=== PATIENT | male | born 1950 | race Caucasian/White ===

== ENCOUNTER 2016-07-30 20:55 | Emergency (ER) | payer MEDICARE, OTHER ==
[2016-07-30 21:54] VITALS: BP 155/74
[2016-07-30] MEDS ORDERED: LORazepam 2 MG/ML MDV IVPUSH ONE (22:02)
[2016-07-30] MEDS ORDERED: Sodium Chloride 0.9% 10 ML Syringe FLUSH PRN (22:02)
--- NOTE | 2016-07-30 23:20 | EDM.PDOC ---
ED HPI GENERAL MEDICAL PROBLEM - General Chief Complaint: General Stated Complaint: VERTIGO/NAUSEA Time Seen by Provider: 07/30/16 22:00 Source of Information: Reports: Patient History Limitations: Reports: No limitations - History of Present Illness INITIAL COMMENTS - FREE TEXT/NARRATIVE: This patient complains of vertigo, spinning sensation. It started this morning when he was lying in bed. He woke up everything was just fine and when he turned his head suddenly he began feeling like he was spinning. This has happened on and off throughout the day and appears to be closely associated with turning his head. Tonight it seems to be worse and it has caused him nausea and some vomiting. He denies any ear pain there's no history of this previously he has not noticed any kind of ataxia. Treatments WATCH TECHNICIAN: Reports: Other (see below) Other Treatments WATCH TECHNICIAN: 's meclizine - vomited up - Related Data Allergies Allergy/AdvReac Type Severity Reaction Status Date / Time Sulfa (Sulfonamide Allergy Rash Verified 07/30/16 21:56 Antibiotics) codeine AdvReac Nausea Verified 07/30/16 21:56 Home Meds: Home Meds Pseudoephedrine HCl [Sudafed 12 Hour] 120 mg PO BID 07/30/16 [History] Rivaroxaban [Xarelto] 20 mg PO DAILY 07/30/16 [History] Past Medical History Respiratory History: Reports: PE, Other (see below) Other Respiratory History: On Xareratol Genitourinary History: Reports: Prostate disorder, Renal calculus Oncologic (Cancer) History: Reports: Prostate, Other (see below) Other Oncologic History: skin - Past Surgical History Cardiovascular Surgical History: Reports: Other (see below) Other Cardiovascular Surgeries/Procedures: Vein stripping of both legs. GI Surgical History: Reports: Hernia repair/other Dermatological Surgical History: Reports: Skin biopsy Social & Family History - Tobacco Use Smoking Status *Q: Never Smoker Second Hand Smoke Exposure: No - Caffeine Use Caffeine Use: Reports: None - Recreational Drug Use Recreational Drug Use: No ED ROS GENERAL - Review of Systems Review Of Systems: See Below Constitutional: Reports: no symptoms HEENT: Reports: No symptoms Respiratory: Reports: no symptoms Cardiovascular: Reports: No symptoms Endocrine: Reports: no symptoms GI/Abdominal: Reports: No symptoms : Reports: no symptoms Musculoskeletal: Reports: no symptoms Neurological: Reports: dizziness Psychiatric: Reports: No symptoms ED EXAM, GENERAL - Physical Exam Exam: See Below Exam Limited By: No limitations General Appearance: alert, WD/WN, no apparent distress (He said as long as he keeps his head still he doesn't have any vertigo. His nausea presently is gone) Eye Exam: bilateral eye: EOMI (There is no nystagmus seen), normal inspection, PERRL Ears: normal external exam, normal TMs Nose: normal inspection Throat/Mouth: Normal inspection Neck: normal inspection Respiratory/Chest: lungs clear Cardiovascular: regular rate, rhythm Peripheral Pulses: 2+: radial (L), radial (R), posterior tibial (L), posterior tibial (R) GI/Abdominal: non tender Extremities: normal inspection Neurological: alert, oriented, CN II-XII intact, normal cognition, no motor/ sensory deficits Psychiatric: normal affect Skin Exam: Warm, Dry Course - Vital Signs Last Recorded V/S: Last Vital Signs Temp 36.5 C 07/30/16 21:54 Pulse 64 07/30/16 21:54 Resp 19 07/30/16 21:54 BP 155/74 H 07/30/16 21:54 Pulse Ox 95 07/30/16 21:54 - Orders/Labs/Meds Orders: Active Orders 24 hr Category Date Time Status Sodium Chloride 0.9% [Saline Flush] Med 07/30/16 22:02 Active 10 ml FLUSH ASDIRECTED PRN Saline Lock Insert [OM.PC] Urgent Oth 07/30/16 22:01 Ordered Medication Orders Sodium Chloride (Saline Flush) 10 ml FLUSH ASDIRECTED PRN PRN Reason: Keep Vein Open Last Admin: 07/30/16 22:10 Dose: 10 ml Meds: Medications Generic Name Dose Route Start Last Admin Trade Name Freq PRN Reason Stop Dose Admin Sodium Chloride 10 ml 07/30/16 22:02 07/30/16 22:10 Saline Flush FLUSH 10 ml ASDIRECTED PRN Administration Keep Vein Open Discontinued Medications Generic Name Dose Route Start Last Admin Trade Name Freq PRN Reason Stop Dose Admin Lorazepam 2 mg 07/30/16 22:02 07/30/16 22:10 Ativan IVPUSH 07/30/16 22:03 2 mg ONETIME ONE Administration - Re-Assessments/Exams Free Text/Narrative Re-Assessment/Exam: 07/30/16 23:42 An IV was established and he was given 2 mg of lorazepam. He was rechecked about an hour later and said he felt better although sleepy. He hasn't tried moving his head lately however. 07/30/16 23:43 07/30/16 23:43 a Perla Hallpike maneuver was not done since his symptoms are so closely associated with head movement Departure - Departure Time of Disposition: 23:18 Disposition: Home, Self-Care 01 Condition: fair Clinical Impression: Benign paroxysmal positional vertigo Instructions: Vertigo, [id number] Referrals: PCP,None [Primary Care Provider] - Forms: ED Department Discharge Additional Instructions: Prescription: Lorazepam 1 mg #10 tablets, take one half or one tablet every 4-6 hours as needed for vertigo. This medication can cause sedation and impair driving or operating machinery. Don't drink any alcohol while taking this medicine. Followup tomorrow with physical therapy. There are certain maneuvers that can be done that will relieve the vertigo. - My Orders Last 24 Hours: My Active Orders 07/30/16 22:01 Saline Lock Insert [OM.PC] Urgent 07/30/16 22:02 Sodium Chloride 0.9% [Saline Flush] 10 ml FLUSH ASDIRECTED PRN - Assessment/Plan Last 24 Hours: My Active Orders 07/30/16 22:01 Saline Lock Insert [OM.PC] Urgent 07/30/16 22:02 Sodium Chloride 0.9% [Saline Flush] 10 ml FLUSH ASDIRECTED PRN
== END 2016-07-30 23:50 | disposition home or self-care (01) ==
LOC: JP.ED 20:55
DX: H81.10 Benign paroxysmal vertigo, unspecified ear (principal); Z88.2 Allergy status to sulfonamides; Z88.5 Allergy status to narcotic agent; Z79.899 Other long term (current) drug therapy
CPT/HCPCS: 96374; 99283; J2060; J7050; 99284

== ENCOUNTER 2016-10-05 23:21 | Emergency (ER) | payer MEDICARE, OTHER ==
[2016-10-06 00:35] VITALS: BP 126/81
[2016-10-06] MEDS ORDERED: HYDROmorphone 1 MG/ML Syringe IVPUSH ONE ×2 (00:50→01:52)
[2016-10-06] MEDS: Sodium Chloride 0.9% 10 ML Syringe FLUSH PRN ×2 (01:07→01:29)
[2016-10-06] MEDS ORDERED: Ondansetron 4 MG/2 ML SDV IVPUSH ONE (01:16)
--- NOTE | 2016-10-06 03:04 | EDM.PDOC ---
ED HPI GENERAL MEDICAL PROBLEM - General Chief Complaint: General Stated Complaint: LT ARM PAIN Time Seen by Provider: 10/06/16 00:38 Source of Information: Reports: Patient History Limitations: Reports: No Limitations - History of Present Illness INITIAL COMMENTS - FREE TEXT/NARRATIVE: History of present illness: [This 66-year-old man comes in the morning of severe 10 out of 10 pain of his left shoulder. This came on after having a pneumonia shot today in the clinic. He also complains of some numbness and tingling of the forearm and hand. He has no fevers or chills with this. He's never reacted to any immunizations in the past like this. Patient is on Xeralto as he's had pulmonary embolus in the past.] Review of systems: As per history of present illness and below otherwise all systems reviewed and negative. Past medical history: As per history of present illness and as reviewed below otherwise noncontributory. Surgical history: As per history of present illness and as reviewed below otherwise noncontributory. Social history: No reported history of drug or alcohol abuse. Family history: As per history of present illness and as reviewed below otherwise noncontributory. Physical exam: HEENT: Atraumatic, normocephalic, pupils reactive, negative for conjunctival pallor or scleral icterus, mucous membranes moist, throat clear, neck supple, nontender, trachea midline. Lungs: Clear to auscultation, breath sounds equal bilaterally Heart: S1S2, regular Abdomen: Soft, nondistended, nontender. Pelvis: Stable nontender. Genitourinary: Deferred. Rectal: Deferred. Extremities: Examination of the left shoulder reveals no erythema or swelling present. But palpation of this area elicits extreme pain. The Band-Aid was present and was high on his shoulder suggesting that the injection site may have been placed a little too high. Neuro: Awake, alert, oriented. Cranial nerves II through XII unremarkable. Cerebellum unremarkable. Motor and sensory unremarkable throughout. Exam nonfocal. Diagnostics: [Given the patient was on xeralto one possibility was that the patient somehow has or had a hematoma form as a result of this injection causing this pain. Hence we did a CT of the left shoulder but no hematoma was identified. He does have some degenerative joint disease present.] Therapeutics: [Patient was given Dilaudid for pain control through a saline lock.] Impression: [Post vaccination left shoulder pain] Plan: [He's provided with Percocet for pain control. I have reassured him that I think that this problem should shahzad with time and he should recover and have normal function of his arm is what I would expect. If he doesn't improve or continues to have problems he will followup with his primary care doctor.] Definitive disposition and diagnosis as appropriate pending reevaluation and review of above. left arm pain Pain Score (Numeric/FACES): 10 - Related Data Allergies Allergy/AdvReac Type Severity Reaction Status Date / Time clindamycin Allergy Cannot Verified 10/06/16 01:09 Remember Sulfa (Sulfonamide Allergy Rash Verified 10/06/16 01:09 Antibiotics) codeine AdvReac Nausea Verified 10/06/16 01:09 Home Meds: Home Meds Pseudoephedrine HCl [Sudafed 12 Hour] 60 mg PO BID PRN 07/30/16 [History] Rivaroxaban [Xarelto] 20 mg PO DAILY 07/30/16 [History] Calcium Carbonate [Tums] 2 tab PO BID 09/15/16 [History] Desoximetasone [Topicort 0.25% Crm] 1 appful TOP BID PRN 09/15/16 [History] Multivitamin with Minerals [Multiple Vitamin] 1 tab PO DAILY 09/15/16 [History] diphenhydrAMINE [Benadryl] 25 - 50 mg PO QID PRN 09/15/16 [History] Acetaminophen [Tylenol] 650 mg PO ASDIRECTED 09/21/16 [History] Albuterol Sulfate [Proair Hfa] 2 puff IH ASDIRECTED 09/21/16 [History] LORazepam 1 mg PO ASDIRECTED PRN 09/21/16 [History] Past Medical History HEENT History: Reports: Impaired Vision Respiratory History: Reports: PE Other Respiratory History: On Xareratol Genitourinary History: Reports: Prostate Disorder, Renal Calculus Oncologic (Cancer) History: Reports: Prostate Other Oncologic History: skin Dermatologic History: Reports: Melanoma - Infectious Disease History Infectious Disease History: Reports: Chicken Pox, Measles - Past Surgical History GI Surgical History: Reports: Hernia Repair/Other Male Surgical History: Reports: Lithotripsy (ESWL) Dermatological Surgical History: Reports: Skin Biopsy Social & Family History - Tobacco Use Smoking Status *Q: Never Smoker Second Hand Smoke Exposure: No - Caffeine Use Caffeine Use: Reports: Tea - Recreational Drug Use Recreational Drug Use: No ED ROS GENERAL - Review of Systems Review Of Systems: ROS reveals no pertinent complaints other than HPI. ED EXAM, GENERAL - Physical Exam Exam: See Below Course - Vital Signs Last Recorded V/S: Last Vital Signs Temp 37.9 C 10/06/16 00:34 Pulse 73 10/06/16 00:34 Resp 26 H 10/06/16 00:34 BP 126/81 10/06/16 00:34 Pulse Ox 98 10/06/16 00:34 - Orders/Labs/Meds Orders: Active Orders 24 hr Category Date Time Status Shoulder wo Cont Lt [CT] Stat Exams 10/06/16 00:50 Taken Sodium Chloride 0.9% [Saline Flush] Med 10/06/16 00:49 Active 10 ml FLUSH ASDIRECTED PRN Saline Lock Insert [OM.PC] Stat Oth 10/06/16 00:49 Ordered Medication Orders Sodium Chloride (Saline Flush) 10 ml FLUSH ASDIRECTED PRN PRN Reason: Keep Vein Open Last Admin: 10/06/16 01:29 Dose: 10 ml Admin: 10/06/16 01:07 Dose: 10 ml Meds: Medications Generic Name Dose Route Start Last Admin Trade Name Freq PRN Reason Stop Dose Admin Sodium Chloride 10 ml 10/06/16 00:49 10/06/16 01:29 Saline Flush FLUSH 10 ml ASDIRECTED PRN Administration Keep Vein Open Discontinued Medications Generic Name Dose Route Start Last Admin Trade Name Freq PRN Reason Stop Dose Admin Hydromorphone HCl 1 mg 10/06/16 00:50 10/06/16 01:03 Dilaudid IVPUSH 10/06/16 00:51 1 mg ONETIME ONE Administration Hydromorphone HCl 1 mg 10/06/16 01:52 10/06/16 02:18 Dilaudid IVPUSH 10/06/16 01:53 1 mg ONETIME ONE Administration Ondansetron HCl 4 mg 10/06/16 01:16 10/06/16 01:26 Zofran IVPUSH 10/06/16 01:17 4 mg ONETIME ONE Administration Departure - Departure Time of Disposition: 03:04 Disposition: Home, Self-Care 01 Condition: good Clinical Impression: Post-vaccination reaction Qualifiers: Encounter type: initial encounter Qualified Code(s): T88.1XXA - Other complications following immunization, not elsewhere classified, initial encounter - Discharge Information Forms: ED Department Discharge Additional Instructions: He if your pain does not shahzad over the weekend I would recommend that you followup in the clinic and see your primary care doctor for further evaluation and treatment. - My Orders Last 24 Hours: My Active Orders 10/06/16 00:49 Sodium Chloride 0.9% [Saline Flush] 10 ml FLUSH ASDIRECTED PRN Saline Lock Insert [OM.PC] Stat 10/06/16 00:50 Shoulder wo Cont Lt [CT] Stat - Assessment/Plan Last 24 Hours: My Active Orders 10/06/16 00:49 Sodium Chloride 0.9% [Saline Flush] 10 ml FLUSH ASDIRECTED PRN Saline Lock Insert [OM.PC] Stat 10/06/16 00:50 Shoulder wo Cont Lt [CT] Stat
== END 2016-10-06 03:35 | disposition home or self-care (01) ==
LOC: JP.ED 23:21
DX: T88.1XXA Other complications following immunization, not elsewhere classified, initial encounter (principal); Z88.1 Allergy status to other antibiotic agents; Z88.2 Allergy status to sulfonamides; Z88.5 Allergy status to narcotic agent; Z79.899 Other long term (current) drug therapy
CPT/HCPCS: 73200; 96374; 96375; 96376; 99283; J1170; J2405; J7050; 99284

== ENCOUNTER 2016-12-14 00:44 | Emergency (ER) | payer MEDICARE, OTHER ==
[2016-12-14] MEDS ORDERED: Sodium Chloride 0.9% 10 ML Syringe FLUSH PRN (01:19)
[2016-12-14] MEDS ORDERED: Ondansetron 4 MG/2 ML SDV IVPUSH ONE (01:29)
[2016-12-14] MEDS ORDERED: HYDROmorphone 1 MG/ML Syringe IVPUSH ONE ×2 (01:29→02:05)
[2016-12-14] MEDS ORDERED: Sodium Chloride 0.9% 1,000 ML IV SCH (02:00)
[2016-12-14] MEDS ORDERED: Lactated Ringers 1,000 ML IV SCH ×2 (03:15→04:30)
[2016-12-14] MEDS ORDERED: Acetaminophen/oxyCODONE 325-10 MG Tab PO PRN ×2 (03:53→04:22)
[2016-12-14 05:13] VITALS: BP 119/73
--- NOTE | 2016-12-14 05:29 | EDM.PDOC ---
ED HPI GENERAL MEDICAL PROBLEM - General Chief Complaint: Abdominal Pain Stated Complaint: ABD PAIN Time Seen by Provider: 12/14/16 01:18 Source of Information: Reports: Patient History Limitations: Reports: No Limitations - History of Present Illness INITIAL COMMENTS - FREE TEXT/NARRATIVE: History of present illness: [66-year-old male presenting with acute onset of left flank pain and suprapubic pain. He does have a history of kidney stones in the past and he feels like he is having another one. It just started an hour to prior to presentation. Prior to that he was feeling fine with no fevers chills abdominal pain dysuria.] Review of systems: As per history of present illness and below otherwise all systems reviewed and negative. Past medical history: As per history of present illness and as reviewed below otherwise noncontributory. Surgical history: As per history of present illness and as reviewed below otherwise noncontributory. Social history: No reported history of drug or alcohol abuse. Family history: As per history of present illness and as reviewed below otherwise noncontributory. Physical exam: HEENT: Atraumatic, normocephalic, pupils reactive, negative for conjunctival pallor or scleral icterus, mucous membranes moist, throat clear, neck supple, nontender, trachea midline. Lungs: Clear to auscultation, breath sounds equal bilaterally, chest nontender. Heart: S1S2, regular, negative for clicks, rubs, or JVD. Abdomen: His abdomen is soft but he does have some tenderness to palpation in the left suprapubic back area and left gutter as well as some mild left-sided CVA tenderness Extremities: Atraumatic, negative for cords or calf pain. Neurovascular unremarkable. Neuro: Awake, alert, oriented. Exam nonfocal. Diagnostics: [UA is positive for hematuria CBC and complete metabolic panel were also done. See T demonstrated a 3 mm stone in the left proximal ureter] Therapeutics: [Patient received IV fluids and IV Dilaudid while here] Impression: [Kidney stone] Plan: [He's provided with Percocet for pain control and if he doesn't pass the stone in the next 2-3 weeks he will follow-up with his primary care provider given the size of the stone it's likely that it will pass] Definitive disposition and diagnosis as appropriate pending reevaluation and review of above. Lower Pelvic Pain Score (Numeric/FACES): 7 - Related Data Allergies Allergy/AdvReac Type Severity Reaction Status Date / Time clindamycin Allergy Cannot Verified 12/14/16 00:56 Remember Sulfa (Sulfonamide Allergy Rash Verified 12/14/16 00:56 Antibiotics) codeine AdvReac Nausea Verified 12/14/16 00:56 Home Meds: Home Meds Pseudoephedrine HCl [Sudafed 12 Hour] 60 mg PO BID PRN 07/30/16 [History] Rivaroxaban [Xarelto] 20 mg PO DAILY 07/30/16 [History] Calcium Carbonate [Tums] 2 tab PO BID 09/15/16 [History] Desoximetasone [Topicort 0.25% Crm] 1 appful TOP BID PRN 09/15/16 [History] Multivitamin with Minerals [Multiple Vitamin] 1 tab PO DAILY 09/15/16 [History] diphenhydrAMINE [Benadryl] 25 - 50 mg PO QID PRN 09/15/16 [History] Acetaminophen [Tylenol] 650 mg PO ASDIRECTED 09/21/16 [History] Albuterol Sulfate [Proair Hfa] 2 puff IH ASDIRECTED 09/21/16 [History] Cyanocobalamin (Vitamin B-12) [Vitamin B-12] 1 tab PO DAILY 12/14/16 [History] Fluticasone Propionate [Flonase] 1 spray BRAD DAILY 12/14/16 [History] Folic Acid 1 tab PO DAILY 12/14/16 [History] Metoprolol Succinate [Toprol XL] 1 tab PO DAILY 12/14/16 [History] Past Medical History HEENT History: Reports: Impaired Vision Cardiovascular History: Reports: Other (See Below) Other Cardiovascular History: tachycardia Respiratory History: Reports: PE Other Respiratory History: On Xareratol Genitourinary History: Reports: Prostate Disorder, Renal Calculus Hematologic History: Reports: Anticoagulation Therapy Oncologic (Cancer) History: Reports: Prostate Other Oncologic History: skin Dermatologic History: Reports: Melanoma - Infectious Disease History Infectious Disease History: Reports: Chicken Pox, Measles - Past Surgical History GI Surgical History: Reports: Hernia Repair/Other Male Surgical History: Reports: Lithotripsy (ESWL) Dermatological Surgical History: Reports: Skin Biopsy Social & Family History - Tobacco Use Smoking Status *Q: Never Smoker Second Hand Smoke Exposure: No - Caffeine Use Caffeine Use: Reports: Tea - Recreational Drug Use Recreational Drug Use: No ED ROS GENERAL - Review of Systems Review Of Systems: ROS reveals no pertinent complaints other than HPI. ED EXAM, RENAL/ - Physical Exam Exam: See Below Course - Vital Signs Last Recorded V/S: Last Vital Signs Temp 36.3 C 12/14/16 00:54 Pulse 59 L 12/14/16 03:40 Resp 16 12/14/16 03:40 BP 119/73 12/14/16 03:40 Pulse Ox 99 12/14/16 03:40 - Orders/Labs/Meds Orders: Active Orders 24 hr Category Date Time Status Abdomen Pelvis wo Cont [CT] Stat Exams 12/14/16 01:20 Taken Acetaminophen/oxyCODONE [Percocet 325-10 MG] Med 12/14/16 03:53 Active 1 tab PO ONETIME PRN Acetaminophen/oxyCODONE [Percocet 325-10 MG] Med 12/14/16 04:22 Ordered 1 tab PO ONETIME PRN Lactated Ringers [Ringers, Lactated] 1,000 ml Med 12/14/16 03:15 Active IV ASDIRECTED Lactated Ringers [Ringers, Lactated] 1,000 ml Med 12/14/16 04:30 Ordered IV ASDIRECTED Sodium Chloride 0.9% [Normal Saline] 1,000 ml Med 12/14/16 02:00 Active IV ASDIRECTED Sodium Chloride 0.9% [Saline Flush] Med 12/14/16 01:19 Active 10 ml FLUSH ASDIRECTED PRN Saline Lock Insert [OM.PC] Stat Oth 12/14/16 01:19 Ordered Medication Orders Sodium Chloride (Normal Saline) 1,000 mls @ 999 mls/hr IV ASDIRECTED ANN Last Admin: 12/14/16 02:03 Dose: 999 mls/hr Lactated Ringer's (Ringers, Lactated) 1,000 mls @ 999 mls/hr IV ASDIRECTED ANN Last Admin: 12/14/16 03:04 Dose: 999 mls/hr Lactated Ringer's (Ringers, Lactated) 1,000 mls @ 999 mls/hr IV ASDIRECTED ANN Last Admin: 12/14/16 04:24 Dose: 999 mls/hr Oxycodone/Acetaminophen (Percocet 325-10 Mg) 1 tab PO ONETIME PRN PRN Reason: Abdominal Pain Last Admin: 12/14/16 04:02 Dose: 1 tab Oxycodone/Acetaminophen (Percocet 325-10 Mg) 1 tab PO ONETIME PRN PRN Reason: Abdominal Pain Sodium Chloride (Saline Flush) 10 ml FLUSH ASDIRECTED PRN PRN Reason: Keep Vein Open Last Admin: 12/14/16 01:26 Dose: 10 ml Labs: Laboratory Tests 12/14/16 12/14/16 12/14/16 Range/Units 01:30 01:30 03:50 WBC 11.6 H (4.5-11.0) K/uL RBC 4.56 (4.30-5.90) M/uL Hgb 15.1 H (12.0-15.0) g/dL Hct 44.7 (40.0-54.0) % MCV 98 (80-98) fL MCH 33 H (27-31) pg MCHC 34 (32-36) % Plt Count 256 (150-400) K/uL Neut % (Auto) 63 (36-66) % Lymph % (Auto) 20 L (24-44) % [place] % (Auto) 13 H (2-6) % Eos % (Auto) 2 (2-4) % Baso % (Auto) 1 (0-1) % Sodium 142 (140-148) mmol/L Potassium 3.7 (3.6-5.2) mmol/L Chloride 106 (100-108) mmol/L Carbon Dioxide 29 (21-32) mmol/L Anion Gap 7.2 (5.0-14.0) mmol/L BUN 21 H (7-18) mg/dL Creatinine 1.4 H (0.8-1.3) mg/dL Est Cr Clr Drug Dosing 69.52 mL/min Estimated GFR (MDRD) 51 L (>60) Glucose 116 H (74-106) mg/dL Calcium 8.9 (8.5-10.1) mg/dL Total Bilirubin 0.5 (0.2-1.0) mg/dL AST 24 (15-37) U/L ALT 34 (12-78) U/L Alkaline Phosphatase 73 (46-116) U/L Total Protein 7.2 (6.4-8.2) g/dL Albumin 3.6 (3.4-5.0) g/dL Globulin 3.6 H (2.3-3.5) g/dL Albumin/Globulin Ratio 1.0 L (1.2-2.2) Urine Color Yellow Urine Appearance Slightly cloudy Urine pH 6.0 (4.5-8.0) Ur Specific [place] 1.015 (1.008-1.030) Urine Protein Negative (NEGATIVE) mg/dL Urine Glucose (UA) Normal (NEGATIVE) mg/dL Urine Ketones Negative (NEGATIVE) mg/dL Urine Occult Blood Large (NEGATIVE) Urine Nitrite Negative (NEGAITVE) Urine Bilirubin Negative (NEGATIVE) Urine Urobilinogen Normal (NORMAL) mg/dL Ur Leukocyte Esterase Negative (NEGATIVE) Urine RBC 20-30 H (0-5) Urine WBC 0-5 (0-5) Ur Epithelial Cells Not seen Amorphous Sediment Not seen Urine Bacteria Not seen Urine Mucus Not seen Meds: Medications Generic Name Dose Route Start Last Admin Trade Name Freq PRN Reason Stop Dose Admin Sodium Chloride 1,000 mls @ 999 mls/hr 12/14/16 02:00 12/14/16 02:03 Normal Saline IV 999 mls/hr ASDIRECTED ANN Administration Lactated Ringer's 1,000 mls @ 999 mls/hr 12/14/16 03:15 12/14/16 03:04 Ringers, Lactated IV 999 mls/hr ASDIRECTED ANN Administration Lactated Ringer's 1,000 mls @ 999 mls/hr 12/14/16 04:30 12/14/16 04:24 Ringers, Lactated IV 999 mls/hr ASDIRECTED ANN Administration Oxycodone/Acetaminophen 1 tab 12/14/16 03:53 12/14/16 04:02 Percocet 325-10 Mg PO 1 tab ONETIME PRN Administration Abdominal Pain Oxycodone/Acetaminophen 1 tab 12/14/16 04:22 Percocet 325-10 Mg PO ONETIME PRN Abdominal Pain Sodium Chloride 10 ml 12/14/16 01:19 12/14/16 01:26 Saline Flush FLUSH 10 ml ASDIRECTED PRN Administration Keep Vein Open Discontinued Medications Generic Name Dose Route Start Last Admin Trade Name Freq PRN Reason Stop Dose Admin Hydromorphone HCl 1 mg 12/14/16 01:29 12/14/16 01:40 Dilaudid IVPUSH 12/14/16 01:30 1 mg ONETIME ONE Administration Hydromorphone HCl 1 mg 12/14/16 02:05 12/14/16 02:10 Dilaudid IVPUSH 12/14/16 02:06 1 mg ONETIME ONE Administration Ondansetron HCl 4 mg 12/14/16 01:29 12/14/16 01:39 Zofran IVPUSH 12/14/16 01:30 4 mg ONETIME ONE Administration Departure - Departure Time of Disposition: Disposition: Home, Self-Care 01 Condition: Good Clinical Impression: Left nephrolithiasis - Discharge Information Forms: ED Department Discharge Additional Instructions: Continue to push fluids. It is likely that he will pass the stone as it is only 3 mm. If her pain becomes intractable you have to repeat present to the emergency room and if it doesn't clear up in a reasonable amount of time he will need to follow-up with your doctor or a urologist - My Orders Last 24 Hours: My Active Orders 12/14/16 01:19 Sodium Chloride 0.9% [Saline Flush] 10 ml FLUSH ASDIRECTED PRN Saline Lock Insert [OM.PC] Stat 12/14/16 01:20 Abdomen Pelvis wo Cont [CT] Stat 12/14/16 02:00 Sodium Chloride 0.9% [Normal Saline] 1,000 ml IV ASDIRECTED 12/14/16 03:15 Lactated Ringers [Ringers, Lactated] 1,000 ml IV ASDIRECTED 12/14/16 03:53 Acetaminophen/oxyCODONE [Percocet 325-10 MG] 1 tab PO ONETIME PRN 12/14/16 04:22 Acetaminophen/oxyCODONE [Percocet 325-10 MG] 1 tab PO ONETIME PRN 12/14/16 04:30 Lactated Ringers [Ringers, Lactated] 1,000 ml IV ASDIRECTED - Assessment/Plan Last 24 Hours: My Active Orders 12/14/16 01:19 Sodium Chloride 0.9% [Saline Flush] 10 ml FLUSH ASDIRECTED PRN Saline Lock Insert [OM.PC] Stat 12/14/16 01:20 Abdomen Pelvis wo Cont [CT] Stat 12/14/16 02:00 Sodium Chloride 0.9% [Normal Saline] 1,000 ml IV ASDIRECTED 12/14/16 03:15 Lactated Ringers [Ringers, Lactated] 1,000 ml IV ASDIRECTED 12/14/16 03:53 Acetaminophen/oxyCODONE [Percocet 325-10 MG] 1 tab PO ONETIME PRN 12/14/16 04:22 Acetaminophen/oxyCODONE [Percocet 325-10 MG] 1 tab PO ONETIME PRN 12/14/16 04:30 Lactated Ringers [Ringers, Lactated] 1,000 ml IV ASDIRECTED
== END 2016-12-14 05:30 | disposition home or self-care (01) ==
LOC: JP.ED 00:44
DX: N13.2 Hydronephrosis with renal and ureteral calculous obstruction (principal); Z85.828 Personal history of other malignant neoplasm of skin; Z98.890 Other specified postprocedural states; Z79.01 Long term (current) use of anticoagulants; Z86.711 Personal history of pulmonary embolism; Z79.899 Other long term (current) drug therapy; Z88.1 Allergy status to other antibiotic agents; Z88.2 Allergy status to sulfonamides; Z88.5 Allergy status to narcotic agent
CPT/HCPCS: 36415; 74176; 80053; 81001; 85025; 96361; 96374; 96375; 96376; 99284; A9270; J1170; J2405; J7040; J7050; J7120

== ENCOUNTER 2017-09-24 17:31 | Emergency (ER) | payer MEDICARE, OTHER ==
[2017-09-24] MEDS ORDERED: Aspirin 81 MG Tab.Chew ONE (18:24)
[2017-09-24] MEDS ORDERED: Aspirin 81 MG Tab.Chew PO ONE (18:30)
[2017-09-24] MEDS ORDERED: Sodium Chloride 0.9% 1,000 ML IV SCH (18:32)
[2017-09-24] MEDS ORDERED: Metoprolol Tartrate 25 MG Tab PO ONE (19:40)
--- NOTE | 2017-09-25 09:56 | CR ---
Chest 2V INDICATION: CHEST PAIN COMPARISON: 10/25/2016 FINDINGS: Two views. Heart size normal. Lungs are clear. No infiltrate or pleural effusion. No sig ns of pulmonary edema.
[2017-09-25 10:48] VITALS: BP 94/64
== END 2017-09-24 22:00 | disposition home or self-care (01) ==
LOC: JP.ED 17:31
DX: R00.0 Tachycardia, unspecified (principal)
CPT/HCPCS: 36415; 71046; 80053; 82553; 83735; 84484; 85025; 96360; 99284; 99285; A9270; J7040; 93010

== ENCOUNTER 2018-01-12 17:15 | Emergency (ER) | payer MEDICARE, OTHER ==
[2018-01-12 18:09] VITALS: BP 118/79
[2018-01-12] MEDS: HYDROmorphone 1 MG/ML Syringe IVPUSH ONE (18:51)
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
[2018-01-12] MEDS: Lidocaine 1% 20 ML MDV INJECT ONE (20:44)
--- NOTE | 2018-01-14 09:02 | CR ---
Femur Min 2V Rt CLINICAL HISTORY: Fall, thigh pain FINDINGS: There is no acute fracture within the femur. No destructive changes are seen. There is macario e mild joint space narrowing in the hip. There is some knee joint space narrowing and patellar spurri ng. No fracture Osteoarthritic changes in the hip and knee
== END 2018-01-12 22:00 | disposition home or self-care (01) ==
LOC: JP.ED 17:15
DX: S01.511A Laceration without foreign body of lip, initial encounter (principal); S70.11XA Contusion of right thigh, initial encounter; Z88.1 Allergy status to other antibiotic agents; Z88.2 Allergy status to sulfonamides; Z88.5 Allergy status to narcotic agent; Z79.899 Other long term (current) drug therapy; W10.9XXA Fall (on) (from) unspecified stairs and steps, initial encounter
CPT/HCPCS: 12011; 36415; 70450; 73552; 80053; 85027; 96374; 99283; 99284; J1170

== ENCOUNTER 2021-05-09 07:42 | Day surgery (SDC) | payer MEDICARE, OTHER ==
[~2021-05-09 07:42] MED LIST: Midazolam 1 MG/ML 2 ML SDV ONE; Propofol 200 MG/20 ML SDV ONE; Sodium Chloride 0.9% 1,000 ML IV SCH; fentaNYL 100 MCG/2 ML SDV ONE
[2021-05-09 11:13] VITALS: BP 124/83; PULSE 55
--- NOTE | 2021-05-09 12:06 | OR ---
DATE OF PROCEDURE: 05/09/2021 SURGEON: Nishant Ramirez MD PROCEDURE: Colonoscopy. FINDINGS: A small raised area, possible polyp in the descending colon, completely removed using cold biopsy forceps. COMPLICATIONS: None. EXPRESSIVE THERAPIST: None. ANESTHESIA: MAC. PREOPERATIVE DIAGNOSIS: Screening colonoscopy. POSTOPERATIVE DIAGNOSIS: Screening colonoscopy. RISKS: Risks, benefits, alternatives, and limitations including, but not limited to infection, bleeding, perforation, false positives, false negatives were explained to the patient who wished to proceed. PROCEDURE IN DETAIL: The patient was placed in left lateral decubitus position. Digital rectal exam was performed without abnormality. Scope was introduced and advanced atraumatically to the ileocecal valve. A photo was taken of this. Scope was brought back to the ascending, transverse, descending colon, and retroflexed. No evidence of old or new blood. No masses. The aforementioned raised area, possibly polyp was identified and completely removed. No abnormalities on retroflexion. Greater than 8 minutes was spent removing the scope. Prep was acceptable, approximately 90% of the luminal surface could be seen. The patient tolerated the procedure well. Nishant Ramirez MD /[id number]
== END 2021-05-09 11:31 | disposition home or self-care (01) ==
LOC: JP.SDS 07:42
PROVIDERS: ATTEND Surgery
DX: Z12.11 Encounter for screening for malignant neoplasm of colon (principal); K63.5 Polyp of colon; G47.33 Obstructive sleep apnea (adult) (pediatric)
CPT/HCPCS: 45380; J2250; J2704; J3010; J7030

== ENCOUNTER 2022-12-24 16:27 | Emergency (ER) | payer MEDICARE, OTHER ==
[2022-12-24] MEDS ORDERED: Sodium Chloride 0.9% 1,000 ML IV ONE (16:48)
[2022-12-24 17:04] LABS: HEMOGLOBIN 15.3 g/dL (12.9-16.9); MEAN CORPUSCULAR HEMOGLOBIN 33.8 pg (31.6-35.5); MEAN CORPUSCULAR VOLUME 99.6 fL (81.4-99.0); RED BLOOD CELL COUNT 4.52 M/uL (4.14-5.76); WHITE BLOOD CELL COUNT,WBC 11.5 K/uL (3.2-11.0)
[2022-12-24 17:05] LABS: INR 1.2; PROTHROMBIN TIME 12.1 sec (9.2-10.6)
[2022-12-24 17:09] LABS: A/G RATIO 1.1 (1.2-2.2); ALANINE AMINOTRANSFERASE,ALT 44 U/L (12-78); ALBUMIN 3.6 g/dL (3.4-5.0); ALKALINE PHOSPHATASE 75 U/L (46-116); ANION GAP 8.1 mmol/L (5.0-14.0); ASPARTATE AMNIOTRANSFERASE,AST 70 U/L (15-37); BILIRUBIN TOTAL 1.4 mg/dL (0.2-1.0); BLOOD UREA NITROGEN,BUN 19 mg/dL (7-18); C-REACTIVE PROTEIN 0.71 mg/dL (0.0-0.3); CALCIUM 8.9 mg/dL (8.5-10.1); CARBON DIOXIDE,CO2 30 mmol/L (21-32); CHLORIDE,CL 105 mmol/L (100-108); CREATININE 1.4 mg/dL (0.8-1.3); EST CRCL DRUG DOSING (CG) 63.81 mL/min; ESTIMATED GFR 53 mL/min (>60); GLUCOSE RANDOM 133 mg/dL (74-106); POTASSIUM,K 3.8 mmol/L (3.6-5.2); PROTEIN TOTAL,TP 6.8 g/dL (6.4-8.2); SODIUM,NA 143 mmol/L (140-148)
[2022-12-24] MEDS ORDERED: Sodium Chloride 0.9% 10 ML SDV FLUSH ONE (18:17)
[2022-12-24] MEDS ORDERED: Iopamidol 612 MG/ML 100 ML Bottle IV PRN (18:17)
[2022-12-24] MEDS ORDERED: Sodium Chloride 0.9% 100 ML IV SCH (18:30)
[2022-12-24 18:59] VITALS: PULSE 71
[2022-12-24 19:11] LABS: APPEARANCE,URINE CLEAR (CLEAR); BILIRUBIN,URINE NEGATIVE (NEGATIVE); COLOR,URINE YELLOW (YELLOW); GLUCOSE,URINE NEGATIVE (NEGATIVE); KETONES,URINE NEGATIVE (NEGATIVE); LEUKOCYTE ESTERASE,URINE NEGATIVE (NEGATIVE); NITRITE,URINE NEGATIVE (NEGATIVE); OCCULT BLOOD,URINE NEGATIVE (NEGATIVE); PROTEIN,URINE NEGATIVE (NEGATIVE)
[2022-12-24 19:17] LABS: AMORPHOUS SEDIMENT,URINE NOT SEEN; BACTERIA,URINE FEW; EPITHELIAL CELLS,URINE RARE; MUCUS,URINE FEW; RBC,URINE NOT SEEN (0-5); WBC,URINE NOT SEEN (0-5)
[2022-12-24 20:26] VITALS: BP 108/65
[2022-12-24] MEDS ORDERED: Sodium Chloride 0.9% 1,000 ML IV SCH (20:45)
== END 2022-12-24 21:34 ==
LOC: JP.ED 16:27
DX: K80.50 Calculus of bile duct without cholangitis or cholecystitis without obstruction (principal); Z88.2 Allergy status to sulfonamides; Z88.5 Allergy status to narcotic agent; Z88.8 Allergy status to other drugs, medicaments and biological substances; Z91.048 Other nonmedicinal substance allergy status; Z79.899 Other long term (current) drug therapy; E66.9 Obesity, unspecified; Z68.30 Body mass index [BMI] 30.0-30.9, adult
CPT/HCPCS: 36415; 74177; 80053; 81001; 83690; 85027; 85610; 86140; 96360; 99284; 99285-25; J3490; J7030; Q9967; U0002